=== PATIENT | female | born 1995 | race Caucasian/White ===

== ENCOUNTER 2016-11-19 23:54 | Observation (INO) | payer MEDICAID ==
[~2016-11-19] VITALS: Ht 154.9 cm; Wt 83.5 kg
[2016-11-20] MEDS ORDERED: LACTATED RINGERS 1,000 ML IV ONE (01:00)
[2016-11-20] MEDS: TERBUTALINE SULFATE 1MG/ML VIAL SUBCUT PRN ×2 (01:11→01:55)
[2016-11-20] MEDS ORDERED: PREN-88 PO (02:32)
[2016-11-20] MEDS ORDERED: OCD MT (02:32)
[2016-11-20] MEDS ORDERED: IRON-1 PO (02:32)
== END 2016-11-20 02:40 | disposition home or self-care (01) ==
LOC: L&D 23:54
PROVIDERS: ADMIT Obstetrics & Gynecology; ATTEND Obstetrics & Gynecology
DX: O26.892 Other specified pregnancy related conditions, second trimester (principal); M54.9 Dorsalgia, unspecified; Z3A.27 27 weeks gestation of pregnancy
CPT/HCPCS: 96360; 96361; 96372; 99281; G0378; J3105; J7120

== ENCOUNTER 2017-02-16 09:05 | Observation (INO) | payer MEDICAID ==
[~2017-02-16] VITALS: Ht 152.4 cm; Wt 90.7 kg
[~2017-02-16 09:05] MED LIST: IRON-1 PO; OCD MT; PREN-88 PO
[2017-02-16] MEDS: LACTATED RINGERS 1,000 ML IV SCH ×2 (09:34→10:42)
== END 2017-02-16 13:15 | disposition home or self-care (01) ==
LOC: L&D 09:05
PROVIDERS: ADMIT Obstetrics & Gynecology; ATTEND Obstetrics & Gynecology
DX: O46.93 Antepartum hemorrhage, unspecified, third trimester (principal); O26.893 Other specified pregnancy related conditions, third trimester; R10.9 Unspecified abdominal pain; Z3A.38 38 weeks gestation of pregnancy
CPT/HCPCS: 96360; 96361; G0378; J7120

== ENCOUNTER → 2021-02-19 | Outpatient (CLI) | payer MEDICAID ==
[~2021-02-19] MED LIST changes: +IBUP-2030 MT; -IRON-1 PO; -OCD MT; -PREN-88 PO
== END | disposition home or self-care (01) ==
LOC: LAB 11:10
DX: Z20.822 Contact with and (suspected) exposure to COVID-19 (principal)
CPT/HCPCS: C9803; U0003; U0005